=== PATIENT | female | born 1995 | race Caucasian/White ===

== ENCOUNTER → 2017-12-24 11:12 | Outpatient (CLI) | payer OTHER | END | disposition home or self-care (01) | LOC: NUCLEAR 11:12 | DX: E05.00 Thyrotoxicosis with diffuse goiter without thyrotoxic crisis or storm (principal) | CPT/HCPCS: 78012; A9531 ==

== ENCOUNTER 2017-12-25 11:50 | Outpatient (CLI) | payer OTHER | END 2017-12-25 12:30 | disposition home or self-care (01) | LOC: NUCLEAR 11:50 | DX: E05.00 Thyrotoxicosis with diffuse goiter without thyrotoxic crisis or storm (principal) | CPT/HCPCS: 78013; A9512 ==

== ENCOUNTER 2017-12-26 10:35 | Outpatient (CLI) | payer OTHER | END 2017-12-26 10:38 | disposition home or self-care (01) | LOC: NUCLEAR 10:35 | DX: E05.00 Thyrotoxicosis with diffuse goiter without thyrotoxic crisis or storm (principal) | CPT/HCPCS: 79005; A9517 ==

== ENCOUNTER 2024-03-11 09:10 | Outpatient (CLI) | payer OTHER ==
[2024-03-11 10:08] LABS: HEMATOCRIT 37.4 % (36.0-45.00); HEMOGLOBIN 12.5 g/dL (12.0-15.00); MEAN CELL VOLUME 83.7 fL (80.00-100.00); MEAN CORPUSCULAR HEMOGLOBIN 27.9 pg (27.00-32.0); MEAN CORPUSCULAR HGB CONC 33.3 g/dl (32.0-36.0); PLATELET COUNT 185 K/uL (150-450); RED BLOOD COUNT 4.47 M/uL (4.00-6.00); RED CELL DISTRIBUTION WIDTH 15.2 % (11.5-14.5)
[2024-03-11 10:27] LABS: INR 1.13; PROTHROMBIN TIME 12.2 SECONDS (9.0-11.5)
[2024-03-11 10:56] LABS: ALBUMIN 4.2 gm/dL (3.4-5.0); BILIRUBIN TOTAL 0.85 mg/dL (0.3-1.2); CREATININE SERUM 0.62 mg/dL (0.55-1.02); GFR 113.8; GLOBULINA 3.6 G/DL (2.4-3.5); POTASSIUM 4.21 mEq/L (3.5-5.1); TOTAL PROTEIN 7.8 gm/dL (6.4-8.2)
[2024-03-11 11:15] LABS: COL EPI 84 SECONDS (82-175)
[2024-03-12 09:18] LABS: MANUAL PLATELET COUNT 374
[2024-03-12 09:25] LABS: PLATELET ESTIMATE NORMAL (NORMAL)
== END 2024-03-11 09:20 | disposition home or self-care (01) ==
LOC: LAB 09:10
PROVIDERS: ATTEND Internal Medicine Hematology & Oncology
DX: D50.8 Other iron deficiency anemias (principal); D51.1 Vitamin B12 deficiency anemia due to selective vitamin B12 malabsorption with proteinuria; D51.3 Other dietary vitamin B12 deficiency anemia; E89.0 Postprocedural hypothyroidism; D68.8 Other specified coagulation defects; R79.9 Abnormal finding of blood chemistry, unspecified; R74.02 Elevation of levels of lactic acid dehydrogenase [LDH]; K76.89 Other specified diseases of liver; D69.1 Qualitative platelet defects

== ENCOUNTER → 2024-08-10 09:40 | Outpatient (CLI) | payer OTHER ==
[2024-08-10 10:54] LABS: PARTIAL THROMBOPLASTIN TIME 29.9 SECONDS (22.0-34.0); PROTHROMBIN TIME 11.9 SECONDS (9.0-11.5)
[2024-08-10 10:57] LABS: HEMATOCRIT 37.7 % (36.0-45.00); HEMOGLOBIN 12.5 g/dL (12.0-15.00); MEAN CELL VOLUME 82.6 fL (80.00-100.00); MEAN CORPUSCULAR HEMOGLOBIN 27.4 pg (27.00-32.0); MEAN CORPUSCULAR HGB CONC 33.2 g/dl (32.0-36.0); PLATELET COUNT 204 K/uL (150-450); RED BLOOD COUNT 4.56 M/uL (4.00-6.00); RED CELL DISTRIBUTION WIDTH 14.5 % (11.5-14.5)
[2024-08-10 10:59] LABS: COL EPI 91 SECONDS (82-175)
[2024-08-10 11:15] LABS: % SATURACION 16.4 % (15-50); BILIRUBIN TOTAL 0.77 mg/dL (0.3-1.2); CALCIUM 8.8 mg/dL (8.5-10.1); CREATININE SERUM 0.61 mg/dL (0.55-1.02); FERRITIN 10.2 NG/ML (8-252); GFR 115.96; GLOBULINA 3.5 G/DL (2.4-3.5); POTASSIUM 4.25 mEq/L (3.5-5.1); TOTAL PROTEIN 7.5 gm/dL (6.4-8.2)
[2024-08-10 11:51] LABS: FOLIC ACID > 20.00 ng/ml (4.78-20)
[2024-08-10 13:05] LABS: MANUAL PLATELET COUNT 328; PLATELET ESTIMATE NORMAL (NORMAL)
[2024-08-12 08:07] LABS: FACTOR VIII ACTIVITY 54 % (56-140); VON WILLERBRAND ACTIVITY 33 % (50-200); VON WILLERBRAND ANTIGEN 46 % (50-200)
== END | disposition home or self-care (01) ==
LOC: LAB 09:40
PROVIDERS: ATTEND Internal Medicine Hematology & Oncology
DX: D50.8 Other iron deficiency anemias (principal); D51.1 Vitamin B12 deficiency anemia due to selective vitamin B12 malabsorption with proteinuria; D51.3 Other dietary vitamin B12 deficiency anemia; E56.1 Deficiency of vitamin K; D68.8 Other specified coagulation defects; E89.0 Postprocedural hypothyroidism; R79.9 Abnormal finding of blood chemistry, unspecified; I10 Essential (primary) hypertension; R74.02 Elevation of levels of lactic acid dehydrogenase [LDH]; K76.89 Other specified diseases of liver